=== PATIENT | male | born 1975 | race Caucasian/White ===

== ENCOUNTER 2022-11-21 08:56 | Outpatient (CLI) | payer BC, SELFPAY ==
--- NOTE | 2022-12-08 09:10 | WPDHOMESLEEP ---
Sleep Study - Home Unattended Date of Study: 11/21/22 Ordering Provider: Nader Garcia MD Interpreting Provider: Faith Everett, DO Home Sleep Study Type: Watch PAT Height: 1.91 m Weight: 90.718 kg Body Mass Index: 25.0 Neck Circumference (inches): 15 [place]: 0 Reason for Sleep Study Daytime hypersomnia and polycythemia Sleep History The patient is a 47-year-old male with back pain, erectile dysfunction and polycythemia that had a sleep study ordered by his primary care physician for evaluation of daytime hypersomnia. The patient denies awakening from sleep short of breath. He denies awakening at night with heartburn, belching or cough. He occasionally snores but it is rarely loud enough others complain. He occasionally has trouble sleeping when he has a cold. He denies waking up gasping for air throughout the night. He denies having breathing problems at night observed by himself or others. He denies sweating excessively at night. He denies having heart palpitations or irregular heartbeats during the night. He denies falling asleep during the day and while driving. He denies sleep paralysis, cataplexy and hypnagogic / hypnopompic hallucinations. He denies having trouble at school or work due to sleepiness. He denies feeling afraid of going to sleep. He occasionally has nightmares but rarely remembers his dreams. He rarely has thoughts racing through his mind. He denies feeling sad or depressed. He rarely has anxiety. He denies having muscular tension. He denies noticing parts of his body jerk. He denies kicking during the night. He denies having crawling aching feelings in his legs and denies having leg pain during the night. He occasionally grinds his teeth during sleep but denies awakening with morning jaw pain. He denies being bothered by pain during the day and denies being awakened by pain during the night. He denies waking up feeling stiff in the morning. He denies waking up with Sore or achy muscles. He denies waking up with pain in the neck, spine for other joints. He goes to bed at 11:30 a.m. p.m. on weekdays and at midnight on the weekends. It takes him 10-15 minutes to fall asleep. He wakes up once throughout the night to urinate and is able to fall back asleep within 10 minutes. He wakes up at 6:45 a.m. on weekdays and 8:30 a.m. on the weekends. He typically gets 6-7 hours of sleep per night. He will stay in bed for 10-15 minutes after waking up in the morning. He currently lives with his . He denies consuming any caffeinated beverages within 2 hours of bedtime. He denies gauge in physical exercise before bedtime. He will watch television before falling asleep. He denies taking naps in the afternoon or the evening. He will consume caffeinated beverages throughout the day. He denies tobacco, alcohol and recreational drug use. [facility] Past Medical History Medical History Abnormal fasting glucose (05/16/21) glucose elevated at 102 on 05/16/2021. Fasting glucose 103 with hemoglobin A1c 4.5 on 07/16/2022. Acute bronchitis BMI 25.0-25.9,adult BMI 26.0-26.9,adult COVID (~02/2022) Elevated TSH TSH elevated at 4.87 with free T4 1.0 on 05/16/2021. TSH slightly elevated at 4.53 with free T4 normal 0.0 on 07/16/2022. Fever blister Hypersomnia Male erectile dysfunction, unspecified Overweight (BMI 25.0-29.9) Polycythemia hemoglobin normal at 17.1 on 05/16/2021. hemoglobin 18.1 on 07/16/2021. Polyp of colon Family History Family History Father Hypertension Diabetes mellitus Mother Diabetes mellitus Grandparent Hypertension, Onset Age: 92 Family history of liver disease Malignant neoplasm of prostate Family history of malignant neoplasm of brain Family history of malignant neoplasm of breast Grandparent Breast cancer Hypertension Social History Social Histor
[2022-12-08 09:21] VITALS: BMI 25.0
== END 2022-11-22 12:37 | disposition home or self-care (01) ==
PROVIDERS: PCP Family Medicine; Visit Provider Family Medicine
DX: G47.10 Hypersomnia, unspecified (principal); R06.83 Snoring
CPT/HCPCS: 95800

== ENCOUNTER → 2023-08-22 11:59 | Outpatient (CLI) | payer BC, SELFPAY ==
--- NOTE | ~2023-08-22 | XR_ITS ---
EXAMINATION: XR chest 2V DATE: 08/22/2023 12:10 INDICATION: Secondary polycythemia. TECHNIQUE: Frontal and lateral views of the chest were obtained on 3 radiographs. COMPARISON: None. FINDINGS: There is no pneumonia, pleural effusion, or pneumothorax. The heart size is normal. IMPRESSION: 1. No acute cardiopulmonary disease. Reviewed, dictated and finalized at location A.
== END ==
PROVIDERS: PCP Family Medicine; Visit Provider Family Medicine
DX: D75.1 Secondary polycythemia (principal)
CPT/HCPCS: 71046

== ENCOUNTER 2023-10-01 12:59 | Outpatient (CLI) | payer BC, SELFPAY ==
[2023-10-01 13:23] LABS: Basophils Absolute Auto 0.1 K/mm3 (0.0-0.1); Basophils Percent Auto 1.1 % (0.2-1.2); Eosinophils Absolute Auto 0.2 K/mm3 (0-0.3); Eosinophils Percent Auto 4.4 % (0-4.4); Hemoglobin 16.4 g/dL (14.0-18.0); Immature Granulocyte Absolute 0.01 K/mm3 (0.00-0.031); Immature Granulocyte Percent A 0.2 % (0-0.5); Lymphocytes Absolute Auto 1.37 K/mm3 (0.9-3.2); Lymphocytes Percent Auto 26.2 % (18.3-44.2); Mean Corpuscular HGB Conc 36.4 g/dl (32-36); Mean Corpuscular Hemoglobin 31.3 pg (26-34); Mean Corpuscular Volume 85.9 fl (80-100); Mean Platelet Volume 10.8 fl (7.4-10.4); Monocytes Absolute Auto 0.3 K/mm3 (0.1-0.6); Monocytes Percent Auto 5.4 % (2.6-8.5); Neutrophils Absolute Auto 3.3 K/mm3 (1.3-6.7); Neutrophils Percent Auto 62.7 % (45.5-73.1); Platelet Count Result 200 k/mm3 (150-375); Red Blood Count 5.24 M/mm3 (4.6-6.20); Red Cell Distribution Width 12.5 % (11.5-14.5); White Blood Count 5.2 K/mm3 (4.5-10.0)
[2023-10-01 13:51] LABS: Alanine Aminotransferase 28 U/L (6-50); Albumin Level 4.4 g/dL (3.5-5.1); Alkaline Phosphatase 50 U/L (38-126); Anion Gap 9 mmol/L (4-12); Aspartate Amino Transferase 30 U/L (17-59); Bilirubin,Total 1.6 mg/dL (0.2-1.3); Blood Urea Nitrogen 15 mg/dL (9-20); Calcium 9.1 mg/dL (8.4-10.2); Carbon Dioxide 30 mmol/L (22-30); Chloride 101 mmol/L (98-107); Estimated Glomerular Filt Rate > 60; Glucose 133 mg/dL (65-110); Sodium 140 mmol/L (137-145)
[2023-10-01 17:08] LABS: Iron 152 ug/dL (49-181)
[2023-10-01 17:18] LABS: Percent Iron Saturation 54 % (20-50)
[2023-10-04 15:23] LABS: Erythropoietin (EPO) 8.1 mIU/mL (2.6-18.5)
[2023-10-10 18:44] LABS: Block/Specimen ID NG; Clinical Indication NG; JAK2 V617F Mutation NOT DETECTED (NOT DETECTED); Specimen Source BLOOD
== END 2023-10-01 13:00 | disposition home or self-care (01) ==
LOC: ANHLAB 13:01
PROVIDERS: Nurse Practitioner Family; PCP Family Medicine; Visit Provider Internal Medicine Hematology & Oncology
DX: D45 Polycythemia vera (principal)
CPT/HCPCS: 36415; 80053; 81270; 82668; 82728; 83540; 83550; 85025

== ENCOUNTER 2024-02-28 01:46 | Day surgery (SDC) | payer BC, SELFPAY ==
[2024-02-06 14:49] VITALS: BMI 25.7
[2024-02-28 06:58] VITALS: BP 143/90; PULSE 76; RESP 20; TEMP 36; O2SAT 100; BMI 25.7
[2024-02-28] MEDS: LACTATED RINGERS 1,000 ML 150 ML IV CONT (07:14)
--- NOTE | 2024-02-28 07:40 | P.PNAN_ITS ---
Anes - Initial Pre Proc Eval Procedure: Operation Date: 02/28/24 08:00 Proposed Procedures p Screening Colonoscopy - Jose Hidalgo MD Date/Time: 02/28/24 07:40 Surgeon: Jose Hidalgo MD Pre Op Diagnosis: hx colon polyps Patient Data Age: 48 Gender: M Height: 1.88 m Weight: 90.7 kg Last Vital Signs Temp 96.8 F L 02/28/24 06:58 Pulse 76 02/28/24 06:58 Resp 20 02/28/24 06:58 BP 143/90 H 02/28/24 06:58 Pulse Ox 100 02/28/24 06:58 O2 Del Method Room Air 02/28/24 06:58 Allergies Allergy/AdvReac Type Severity Reaction Status Date / Time codeine Allergy Unknown Swelling Verified 02/28/24 06:55 Home Medications Medication Instructions Recorded Confirmed Type sildenafil 100 mg tablet 100 mg PO DAILY PRN sexual 09/26/21 02/28/24 Rx activity #90 tabs doxycycline hyclate 50 mg capsule 50 mg PO . Every other day 08/22/23 02/28/24 History aspirin 81 mg tablet,delayed 81 mg PO DAILY 09/25/23 02/28/24 History release (Adult Low Dose Aspirin) benzonatate 200 mg capsule 200 mg PO TID PRN cough #30 caps 10/16/23 02/28/24 Rx valacyclovir 1 gram tablet 1,000 mg PO .COMPLEX PRN Fever 02/28/24 02/28/24 History (Valtrex) blister Patient hx anesthesia problems: none Family hx anesthesia problems: none Results Review: All pre-operative results and documents have been reviewed as part of the pre- operative evaluation. [facility] Past Medical History Medical History Abnormal fasting glucose (05/16/21) glucose elevated at 102 on 05/16/2021. Fasting glucose 103 with hemoglobin A1c 4.5 on 07/16/2022. Fasting glucose 108 with hemoglobin A1c 4.7 on 07/30/2023 Acute bronchitis BMI 25.0-25.9,adult BMI 26.0-26.9,adult COVID (~02/2022) Elevated TSH TSH elevated at 4.87 with free T4 1.0 on 05/16/2021. TSH slightly elevated at 4.53 with free T4 normal 0.0 on 07/16/2022. TSH 6.28 with free T4 normal at 1.0 and T3 total normal at 134 on 07/30/2023. Essential hypertension (08/22/23) probable white coat component Fever blister Hypersomnia Home sleep study on 11/21/2022 was negative for sleep apnea. Male erectile dysfunction, unspecified Overweight (BMI 25.0-29.9) Polycythemia hemoglobin normal at 17.1 on 05/16/2021. hemoglobin 18.1 on 07/16/2021. Hemoglobin 18.0 on 07/30/2023. Chest x-ray was normal on 07/30/2023. [employer] consultation 09/18/2023. hemoglobin 16.4, hematocrit 45.0, Iron 152 with 54% saturation and ferritin 194 on 10/01/2023. Polyp of colon Colon polyp 02/26/2019. Family History Family History Father Hypertension Diabetes mellitus Mother Diabetes mellitus Grandparent Hypertension, Onset Age: 92 Family history of liver disease Malignant neoplasm of prostate Family history of malignant neoplasm of brain Family history of malignant neoplasm of breast Grandparent Breast cancer Hypertension Social History Social History Smoking status: Never smoker Alcohol intake: current Drinks per week: 2 Substance use: never Substance use type: does not use Lack of Transportation: No Lack of Food: Never True Current Housing: I Have Housing Concerned About Future Housing: No Difficulty Paying Gas/Electric Bills: No Difficulty Paying for Meds: No Currently Unemployed: No Education: Bachelor's Degree Difficulty w/ Childcare or Family Care: No Living arrangements: with family Additional living arrangements comments: With praveen Shelton Final PreProcedure Day of Procedure 02/28/24 07:40 Patient weight: normal Heart: regular rate and rhythm Lungs: clear to auscultation Airway: Mallampati scale class 1 Neurological: alert and oriented Last oral intake: >/= 8 hours ASA classification: II Emergent: no Anesthetic plan: proceed Anesthesia type and monitoring: general GIVS and standard monitoring Results Review: All pre-operative results and documents have been reviewed as part of the pre- operative evaluation. Borderline HTN, not on meds at this point but pt says he will likely be started on meds next visit. Informed Consent: The patient's anesthetic plan and its attendant risks and benefits were discussed with the patient/family/POA. Questions were solicited and answers provided to the satisfaction of the patient/family/POA.
--- NOTE | 2024-02-28 08:00 | PM.IMHP ---
H&P: [facility] History of Present Illness Date/Time: 02/28/24 08:00 Chief Complaint: History of colon polyps Narrative: The patient has a history of colonic polyps, the last colonoscopy was 3 years ago. Review of Systems Review of Systems: All systems reviewed & are unremarkable except as noted in HPI and below [facility] Past Medical History Medical History Abnormal fasting glucose (05/16/21) glucose elevated at 102 on 05/16/2021. Fasting glucose 103 with hemoglobin A1c 4.5 on 07/16/2022. Fasting glucose 108 with hemoglobin A1c 4.7 on 07/30/2023 Acute bronchitis BMI 25.0-25.9,adult BMI 26.0-26.9,adult COVID (~02/2022) Elevated TSH TSH elevated at 4.87 with free T4 1.0 on 05/16/2021. TSH slightly elevated at 4.53 with free T4 normal 0.0 on 07/16/2022. TSH 6.28 with free T4 normal at 1.0 and T3 total normal at 134 on 07/30/2023. Essential hypertension (08/22/23) probable white coat component Fever blister Hypersomnia Home sleep study on 11/21/2022 was negative for sleep apnea. Male erectile dysfunction, unspecified Overweight (BMI 25.0-29.9) Polycythemia hemoglobin normal at 17.1 on 05/16/2021. hemoglobin 18.1 on 07/16/2021. Hemoglobin 18.0 on 07/30/2023. Chest x-ray was normal on 07/30/2023. [employer] consultation 09/18/2023. hemoglobin 16.4, hematocrit 45.0, Iron 152 with 54% saturation and ferritin 194 on 10/01/2023. Polyp of colon Colon polyp 02/26/2019. Family History Family History Father Hypertension Diabetes mellitus Mother Diabetes mellitus Grandparent Hypertension, Onset Age: 92 Family history of liver disease Malignant neoplasm of prostate Family history of malignant neoplasm of brain Family history of malignant neoplasm of breast Grandparent Breast cancer Hypertension Social History Social History Smoking status: Never smoker Alcohol intake: current Drinks per week: 2 Substance use: never Substance use type: does not use Lack of Transportation: No Lack of Food: Never True Current Housing: I Have Housing Concerned About Future Housing: No Difficulty Paying Gas/Electric Bills: No Difficulty Paying for Meds: No Currently Unemployed: No Education: Bachelor's Degree Difficulty w/ Childcare or Family Care: No Living arrangements: with family Additional living arrangements comments: With sp Meds Home Medications and Allergies Home Medications Medication Instructions Recorded Confirmed Type sildenafil 100 mg tablet 100 mg PO DAILY PRN sexual 09/26/21 02/28/24 Rx activity #90 tabs doxycycline hyclate 50 mg capsule 50 mg PO . Every other day 08/22/23 02/28/24 History aspirin 81 mg tablet,delayed 81 mg PO DAILY 09/25/23 02/28/24 History release (Adult Low Dose Aspirin) benzonatate 200 mg capsule 200 mg PO TID PRN cough #30 caps 10/16/23 02/28/24 Rx valacyclovir 1 gram tablet 1,000 mg PO .COMPLEX PRN Fever 02/28/24 02/28/24 History (Valtrex) blister Allergies Allergy/AdvReac Type Severity Reaction Status Date / Time codeine Allergy Unknown Swelling Verified 02/28/24 06:55 Vital Signs Vital Signs - 24 hr 02/28/24 06:58 Temperature 96.8 F L Pulse Rate 76 Respiratory Rate 20 Blood Pressure 143/90 H Pulse Oximetry 100 Oxygen Delivery Room Air Exam Const: General: cooperative and healthy appearing Resp: Effort & Inspection: normal respiratory effort and able to speak in complete sentences Auscultation: clear to auscultation bilaterally Cardio: Rate: regular rate Rhythm: regular rhythm GI: Inspection: normal to inspection GI Palp: No No hepatosplenomegaly present Auscultation: normal bowel sounds Rectal Exam: deferred Skin: General skin exam: normal color Psych: Appearance: grossly normal Mental Status: mental status grossly normal Assessment and Plan Assessment and plan (1) Polyp of colon: Qualifiers: Colon polyp type: unspecified Colon location: unspecified part of colon Qualified Code(s): K63.5 - Polyp of colon Code(s): K63.5 - Polyp of colon Status: Acute Assessment and Plan: The patient is deemed a good candidate for the procedure. Consent signed. Will proceed.
[2024-02-28 08:26] VITALS: BP 104/71; PULSE 66; RESP 15; O2SAT 100
[2024-02-28 08:36] VITALS: BP 119/85; PULSE 65; RESP 18; O2SAT 100
[2024-02-28 08:46] VITALS: BP 125/85; PULSE 60; RESP 19; O2SAT 100
== END 2024-02-28 08:53 | disposition home or self-care (01) ==
PROVIDERS: PCP Family Medicine; Visit Provider Internal Medicine Gastroenterology
PROC: 0DJD8ZZ Inspection of Lower Intestinal Tract, Via Natural or Artificial Opening Endoscopic (ICD-10-PCS; CPT 45378; principal; 2024-02-28 08:00)
DX: Z12.11 Encounter for screening for malignant neoplasm of colon (principal); I10 Essential (primary) hypertension; G47.10 Hypersomnia, unspecified; N52.9 Male erectile dysfunction, unspecified; D75.1 Secondary polycythemia; Z79.82 Long term (current) use of aspirin; Z86.0100 Personal history of colon polyps, unspecified; Z80.42 Family history of malignant neoplasm of prostate; Z80.8 Family history of malignant neoplasm of other organs or systems; Z80.3 Family history of malignant neoplasm of breast
CPT/HCPCS: 45378; J2704; J7120